=== PATIENT | male | born 1970 | race Caucasian/White ===

== ENCOUNTER 2023-05-11 12:51 | Emergency (ER) | payer MEDICAID ==
[~2023-05-11 12:51] MED LIST: Diphtheria,Pertussis(Acell),Tetanus Vaccine 0.5 ML Syringe IM ONE; Lidocaine 1% 5 ML VIAL INJECT ONE; cefTRIAXone 1 GM Vial IM ONE
[2023-05-11] MEDS ORDERED: cefTRIAXone 1 GM Vial ONE (13:13)
[2023-05-11] MEDS ORDERED: Acetaminophen/HYDROcodone 325-5 MG Tab ONE (14:00)
== END 2023-05-11 14:02 | disposition home or self-care (01) ==
LOC: LB.ED 12:51
DX: S68.114A Complete traumatic metacarpophalangeal amputation of right ring finger, initial encounter (principal); Z23 Encounter for immunization; W26.8XXA Contact with other sharp object(s), not elsewhere classified, initial encounter; Y99.0 Civilian activity done for income or pay
CPT/HCPCS: 73140-F8; 90471; 90715; 96374; 99283-25; A9270-GY; J0696